=== PATIENT | female | born 1995 | race African-American/Black ===

== ENCOUNTER 2017-02-08 18:28 | Emergency (ER) | payer MEDICAID ==
[2017-02-08 18:39] VITALS: BP 114/68
--- NOTE | 2017-02-08 19:48 | ER Document Report ---
ED Skin Rash/Insect Bite/Abscs - General Chief Complaint: Abscess Stated Complaint: BUMP WITH PAIN ON GENITALIA Time Seen by Provider: 02/08/17 19:39 Notes: 21 yo female c/o painful bump to right labia x 3 days. had similar abscess in same area last year that was drained. pt denies dysuria, vaginal discharge, abdominal pain, fever TRAVEL OUTSIDE OF THE [place] IN LAST 30 DAYS: No - HPI Patient complains to provider of: Tender/swollen area Skin Character: Abscess Skin Temperature: Warm Quality of rash: Painful Exacerbated by: Denies Relieved by: Denies - Related Data Allergies/Adverse Reactions: No Known Allergies Allergy (Verified 02/08/17 18:38) Past Medical History - General Information source: Patient - Social History Smoking Status: Never Smoker Smoking Education Provided: Yes Frequency of alcohol use: None Drug Abuse: None Family History: Reviewed & Not Pertinent Pulmonary Medical History: Reports: Hx Asthma Renal/ Medical History: Denies: Hx Peritoneal Dialysis - Immunizations Immunizations up to date: Yes Hx Diphtheria, Pertussis, Tetanus Vaccination: Yes Review of Systems - Review of Systems Constitutional: No symptoms reported EENT: No symptoms reported Cardiovascular: No symptoms reported Respiratory: No symptoms reported Gastrointestinal: No symptoms reported Genitourinary: See HPI Female Genitourinary: No symptoms reported Musculoskeletal: No symptoms reported Skin: No symptoms reported Hematologic/Lymphatic: No symptoms reported Neurological/Psychological: No symptoms reported Physical Exam - Vital signs Vitals: Temp Pulse Resp BP Pulse Ox 97.5 F 101 H 16 114/68 98 02/08/17 18:38 02/08/17 18:38 02/08/17 18:38 02/08/17 18:38 02/08/17 18:38 Interpretation: Normal - General General appearance: Appears well, Alert - HEENT Head: Normocephalic, Atraumatic Eyes: Normal Pupils: PERRL - Respiratory Respiratory status: No respiratory distress Chest status: Nontender Breath sounds: Normal Chest palpation: Normal - Cardiovascular Rhythm: Regular Heart sounds: Normal auscultation Murmur: No - Abdominal Inspection: Normal Distension: No distension Bowel sounds: Normal Tenderness: Nontender Organomegaly: No organomegaly - Genitourinary External exam: Lesions - discrete pustule to right mid labia. Female anatomy: 1 - pustule, no induration - Back Back: Normal, Nontender - Extremities General upper extremity: Normal inspection, Nontender, Normal color, Normal ROM , Normal temperature General lower extremity: Normal inspection, Nontender, Normal color, Normal ROM , Normal temperature, Normal weight bearing. No: Opal's sign - Neurological Neuro grossly intact: Yes Cognition: Normal Orientation: AAOx4 Jaspreet Coma Scale Eye Opening: Spontaneous [place] Coma Scale Verbal: Oriented [place] Coma Scale Motor: Obeys Commands [place] Coma Scale Total: 15 Speech: Normal Motor strength normal: LUE, RUE, LLE, RLE Sensory: Normal - Psychological Associated symptoms: Normal affect, Normal mood - Skin Skin Temperature: Warm Skin Moisture: Dry Skin Color: Normal Course - Re-evaluation Re-evalutation: 02/08/17 19:54 early abscess. no fluctuance. I&D not indicated today. will treat with oral antibiotic, warm compresses. pt instructed to follow up with [employer] for further evaluation and treatment 02/08/17 19:55 pt agreeable with plan and stable for discharge - Vital Signs Vital signs: Temp Pulse Resp BP Pulse Ox 97.5 F 101 H 16 114/68 98 02/08/17 18:38 02/08/17 18:38 02/08/17 18:38 02/08/17 18:38 02/08/17 18:38 Discharge - Discharge Clinical Impression: Labial abscess Condition: Stable Disposition: HOME, SELF-CARE Instructions: Abscess ([facility]), Antibiotic Therapy ([facility]), Doxycycline ([facility]) Additional Instructions: take antibiotic as prescribed warm compresses to area follow up with [employer] as scheduled Prescriptions: Doxycycline Hyclate [Vibramycin] 100 mg PO BID #14 capsule
== END 2017-02-08 20:13 | disposition home or self-care (01) ==
LOC: ER 18:28
DX: N76.4 Abscess of vulva (principal); J45.909 Unspecified asthma, uncomplicated
CPT/HCPCS: 99282

== ENCOUNTER 2017-08-31 16:40 | Emergency (ER) | payer MEDICAID ==
[2017-08-31 16:48] VITALS: BP 115/65
--- NOTE | 2017-08-31 18:46 | ER Document Report ---
ED Skin Rash/Insect Bite/Abscs - General Chief Complaint: Abscess Stated Complaint: POSSIBLE ABSCESS Time Seen by Provider: 08/31/17 18:03 Mode of Arrival: Ambulatory Information source: Patient Notes: [id number] female presenting today for complaint of a "abscess to the vagina 3 days. She states she has a history of the same 2 years ago with an I& D. TRAVEL OUTSIDE OF THE [place] IN LAST 30 DAYS: No - HPI Patient complains to provider of: Skin rash/lesion, Other - Painful area to the right labia Onset: Other - 3 days Onset/Duration: Gradual Quality of pain: Burning, Sharp Severity: Moderate Pain Level: 4 Skin Character: Rash - To both labia and thighs, Other - States she has a sore area to her right labia Quality of rash: Painful Identify cause: No Exacerbated by: Movement, Walking Relieved by: Denies Similar symptoms previously: Yes Recently seen / treated by doctor: No - Related Data Allergies/Adverse Reactions: No Known Allergies Allergy (Verified 02/08/17 18:38) Past Medical History - General Information source: Patient - Social History Smoking Status: Never Smoker Cigarette use (# per day): No Chew tobacco use (# tins/day): No Smoking Education Provided: No Frequency of alcohol use: None Drug Abuse: None Lives with: Family Family History: Reviewed & Not Pertinent Patient has suicidal ideation: No Patient has homicidal ideation: No - Past Medical History Cardiac Medical History: Reports: None Pulmonary Medical History: Reports: Hx Asthma EENT Medical History: Reports: None Neurological Medical History: Reports: None Endocrine Medical History: Reports: None Renal/ Medical History: Reports: None Malignancy Medical History: Reports: None GI Medical History: Reports: None Musculoskeltal Medical History: Reports None Skin Medical History: Reports Hx Cellulitis Psychiatric Medical History: Reports: None Traumatic Medical History: Reports: None Infectious Medical History: Reports: None Surgical Hx: Negative Past Surgical History: Reports: None - Immunizations Immunizations up to date: Yes Hx Diphtheria, Pertussis, Tetanus Vaccination: Yes Review of Systems - Review of Systems Constitutional: No symptoms reported EENT: No symptoms reported Cardiovascular: No symptoms reported Respiratory: No symptoms reported Gastrointestinal: No symptoms reported Genitourinary: No symptoms reported Female Genitourinary: Other - Painful swollen right labia Musculoskeletal: No symptoms reported Skin: Other - Painful sore to right labia nonpainful rash to bilateral labia and thigh Hematologic/Lymphatic: No symptoms reported Neurological/Psychological: No symptoms reported -: Yes All other systems reviewed and negative Physical Exam - Vital signs Vitals: Temp Pulse Resp BP Pulse Ox 98.5 F 100 16 115/65 98 08/31/17 16:46 08/31/17 16:46 08/31/17 16:46 08/31/17 16:46 08/31/17 16:46 Interpretation: Normal - General General appearance: Appears well, Alert - HEENT Head: Normocephalic, Atraumatic Eyes: Normal Pupils: PERRL - Respiratory Respiratory status: No respiratory distress Chest status: Nontender Breath sounds: Normal Chest palpation: Normal - Cardiovascular Rhythm: Regular Heart sounds: Normal auscultation Murmur: No - Abdominal Inspection: Normal Distension: No distension Bowel sounds: Normal Tenderness: Nontender Organomegaly: No organomegaly - Genitourinary External exam: Normal, Lesions - Open sore to the right labia not an abscess. Patient states she scratched 1 of the bumps that she has on the lower area. She states she also shaved and she is not sure which one caused the sore. - Back Back: Normal, Nontender - Extremities General upper extremity: Normal inspection, Nontender, Normal color, Normal ROM , Normal temperature General lower extremity: Normal inspection, Nontender, Normal color, Normal ROM , Normal temperature, Normal weight bearing. No: Opal's sign - Neurological Neuro grossly intact: Yes Cognition: Normal Orientation: AAOx4 [place] Coma Scale Eye Opening: Spontaneous Jasp[place] Coma Scale Verbal: Oriented Jaspreet Coma Scale Motor: Obeys Commands Jaspreet Coma Scale Total: 15 Speech: Normal Motor strength normal: LUE, RUE, LLE, RLE Sensory: Normal - Psychological Associated symptoms: Normal affect, Normal mood - Skin Skin Temperature: Warm Skin Moisture: Dry Skin Color: Normal Location of irregularity: Other - Painful open sore to right labia, rash/bumps to the left and right labia and thigh each one on a hair follicle nonpainful Course - Re-evaluation Re-evalutation: 09/01/17 02:14 Patient instructed to clean labia well with soap and water and apply bacitracin. Sample was sent for herpes simplex of the bumps to the hair follicles on the right and left labia and thigh. Patient scheduled to follow- up with primary doctor and [employer]. Patient instructed to return to ED if any of the bumps/rash become painful or infected. Patient verbalized understanding of instructions. Asked if patient had any other questions or concerns. As patient stated no she did not have any other questions or concerns. - Vital Signs Vital signs: Temp Pulse Resp BP Pulse Ox 98.5 F 100 16 115/65 98 08/31/17 16:46 08/31/17 16:46 08/31/17 16:46 08/31/17 16:46 08/31/17 16:46 Discharge - Discharge Clinical Impression: open sore to right labia, Rash to the perineal area Condition: Stable Disposition: HOME, SELF-CARE Additional Instructions: You were seen today for an open sore to you right vagina. You state it has been there 2 or 3 days. There is no abscess in this area. You have some rash that she states is not painful and each bump is on a hair follicle. This does not appear to be herpes but we will send a culture for the herpes. I have given you some bacitracin to apply to the open wound to your right labia. Please be careful shaving and if you scratch these bumps and make an open sore. Please clean and well with soap and water and apply bacitracin to prevent infection. SOAP CLEANSING: Gently wash the wound daily using a mild soap (like Ivory, Phisoderm, Neutrogena). Use warm water, rubbing gently until all debris, ooze, and crusting have been washed from the wound. Allow to dry briefly (about 10 minutes) after cleaning. Repeat this cleansing at least three times a day for the first two days and then once or twice a day. ANTIBIOTIC OINTMENT PROTECTION: Your wounds are such that dressing them is not practical or optional. After cleansing, you should apply a thin coating of antibiotic ointment ( Bacitracin, not Neosporin) to the wounds at least three times daily. This lessens infection risk, and may decrease the amount of scarring. Use a q-tip or dull butter knife, not your finger, to apply this ointment. Any debris or ooze which builds up in the ointment should be gently rubbed off with a sterile gauze pad. Harder crusting may need to be gently scrubbed off with a clean wash cloth with soap and warm water, perhaps applying a warm, wet wash cloth to the wound for ten minutes first. Development of redness, severe itching, or blistering may mean allergy to the ointment. See the doctor. Acetaminophen Acetaminophen may be taken for pain relief or fever control. It's much safer than aspirin, offering a wider range of "safe" dosages. It is safe during . Some brand names are Tylenol, Panadol, Datril, Anacin 3, Tempra, and Liquiprin. Acetaminophen can be repeated every four hours. The following are maximum recommended dosages: WEIGHT Dose Drops Elixir Chewable( 80mg) (LBS.) drprs=droppers tsp=teaspoon 6 40 mg .4 ml (1/2) 6-11 80 mg .8 ml (full) 1/2 tsp 1 tab 12-16 120 mg 1 1/2 drprs 3/4 tsp 1 1/2 tabs 17-23 160 mg 2 drprs 1 tsp 2 tabs 24-30 240 mg 3 drprs 1 1/2 tsp 3 tabs 30-35 320 mg 2 tsp 4 tabs 36-41 360 mg 2 1/4 tsp 4 1 /2 tabs 42-47 400 mg 2 1/2 tsp 5 tabs 48-53 480 mg 3 tsp 6 tabs 54-59 520 mg 3 1/4 tsp 6 1 /2 tabs 60-64 560 mg 3 1/2 tsp 7 tabs 65-70 600 mg 3 3/4 tsp 7 1 /2 tabs 71-76 640 mg 4 tsp 8 tabs 77-82 720 mg 4 1/2 tsp 9 tabs 83-88 800 mg 5 tsp 10 tabs >89 pounds or adults 650 mg to 900 mg Acetaminophen can be repeated every four hours. Maximum daily dose not to exceed 4000 mg. These maximum recommended dosages are slightly higher than the dosages written on the product container, but these dosages are very safe and well below the toxic dosage for acetaminophen. Ibuprofen Ibuprofen is an excellent, safe drug for pain control. In addition, it has potent antiinflammatory effects which are beneficial, especially in the treatment of injuries, arthritis, or tendonitis. It's best to take ibuprofen with food. Persons with ulcer disease or allergy to aspirin should notify their physician of this before taking ibuprofen. Take the medication exactly as prescribed. Don't take additional doses unless instructed to do so by your doctor. If you develop wheezing, shortness of breath, hives, faintness, stomach pain, vomiting, or dark black stools, return for re-evaluation at once. Call [phone] in about a week for the results of the herpes culture FOLLOW-UP CARE: If you have been referred to a physician for follow-up care, call the physician s office for an appointment as you were instructed or within the next two days. If you experience worsening or a significant change in your symptoms, notify the physician immediately or return to the Emergency Department at any time for re-evaluation. Forms: Return to Work Referrals: [facility] [Provider Group] - Follow up as needed
== END 2017-08-31 19:15 | disposition home or self-care (01) ==
LOC: ER 16:40
DX: L98.9 Disorder of the skin and subcutaneous tissue, unspecified (principal); R21 Rash and other nonspecific skin eruption; J45.909 Unspecified asthma, uncomplicated
CPT/HCPCS: 87250; 99282

== ENCOUNTER 2017-09-26 13:08 | Emergency (ER) | payer MEDICAID ==
[2017-09-26 13:15] VITALS: BP 111/70
--- NOTE | 2017-09-26 13:50 | ER Document Report ---
ED General - General Chief Complaint: Rectal Bleeding Stated Complaint: RECTAL PAIN Time Seen by Provider: 09/26/17 13:34 Mode of Arrival: Ambulatory Information source: Patient Notes: 21-year-old female presents with complaints of intermittent rectal pain with bowel movements. Patient denies any fevers or chills denies any abdominal pain notes that she has bright red blood per rectum Patient notes she was treated for this with a cream and some pills a few months prior symptoms improved and then returned admits to hard bowel movements TRAVEL OUTSIDE OF THE [place] IN LAST 30 DAYS: No COUNTRY TRAVELED TO/FROM: [facility] Onset: Other Onset/Duration: Intermittent Quality of pain: Burning Severity: Mild Pain Level: 1 Associated symptoms: Other Exacerbated by: Other - Bowel movements Relieved by: Other - Medications provided to her from urgent care Similar symptoms previously: Yes Recently seen / treated by doctor: Yes - Related Data Allergies/Adverse Reactions: No Known Allergies Allergy (Verified 02/08/17 18:38) Past Medical History - Social History Smoking Status: Never Smoker Cigarette use (# per day): No Chew tobacco use (# tins/day): No Smoking Education Provided: No Family History: Reviewed & Not Pertinent Pulmonary Medical History: Reports: Hx Asthma Renal/ Medical History: Denies: Hx Peritoneal Dialysis Skin Medical History: Reports Hx Cellulitis - Immunizations Immunizations up to date: Yes Hx Diphtheria, Pertussis, Tetanus Vaccination: Yes Review of Systems - Review of Systems Notes: REVIEW OF SYSTEMS: CONSTITUTIONAL : Denies fever, chills, or sweats. Denies recent illness. EENT: Denies eye, ear, throat, or mouth pain or symptoms. Denies nasal or sinus congestion or discharge. Denies throat, tongue, or mouth swelling or difficulty swallowing. CARDIOVASCULAR: Denies chest pain. Denies palpitations or racing or irregular heart beat. Denies ankle edema. RESPIRATORY: Denies cough, cold, or chest congestion. Denies shortness of breath, difficulty breathing, or wheezing. GASTROINTESTINAL: Admits to rectal bleeding GENITOURINARY: Denies difficulty urinating, painful urination, burning, frequency, blood in urine, or discharge. FEMALE GENITOURINARY: Denies vaginal bleeding, heavy or abnormal periods, irregular periods. Denies vaginal discharge or odor. MUSCULOSKELETAL: Denies back or neck pain or stiffness. Denies joint pain or swelling. SKIN: Denies rash, lesions or sores. HEMATOLOGIC : Denies easy bruising or bleeding. LYMPHATIC: Denies swollen, enlarged glands. NEUROLOGICAL: Denies confusion or altered mental status. Denies passing out or loss of consciousness. Denies dizziness or lightheadedness. Denies headache. Denies weakness or paralysis or loss of use of either side. Denies problems with gait or speech. Denies sensory loss, numbness, or tingling. Denies seizures. PSYCHIATRIC: Denies anxiety or stress. Denies depression, suicidal ideation, or homicidal ideation. ALL OTHER SYSTEMS REVIEWED AND NEGATIVE. PHYSICAL EXAMINATION: GENERAL: Well-appearing, well-nourished and in no acute distress. HEAD: Atraumatic, normocephalic. EYES: Pupils equal round and reactive to light, extraocular movements intact, conjunctiva are normal. ENT: Nares patent, oropharynx clear without exudates. Moist mucous membranes. NECK: Normal range of motion, supple without lymphadenopathy LUNGS: Breath sounds clear to auscultation bilaterally and equal. No wheezes rales or rhonchi. HEART: Regular rate and rhythm without murmurs ABDOMEN: Soft, nontender, nondistended abdomen. No guarding, no rebound. No masses appreciated. Female : Rectal examination performed with nurse Cat in the room, anal fissure noted at the 6:00 region no active bleeding no hemorrhoids Musculoskeletal: Normal range of motion, no pitting or edema. No cyanosis. NEUROLOGICAL: Cranial nerves grossly intact. Normal speech, normal gait. Normal sensory, motor exams PSYCH: Normal mood, normal affect. SKIN: Warm, Dry, normal turgor, no rashes or lesions noted. Dictation was performed using [employer] voice recognition software Physical Exam - Vital signs Vitals: Temp Pulse Resp BP Pulse Ox 97.9 F 90 18 111/70 98 09/26/17 13:12 09/26/17 13:12 09/26/17 13:12 09/26/17 13:12 09/26/17 13:12 Course - Re-evaluation Re-evalutation: 09/26/17 13:48 Patient has obvious anal fissure, she will be treated with stool softeners and lidocaine jelly she otherwise looks well will be given GI follow-up as symptoms have now resolved after a few months After performing a Medical Screening Examination, I estimate there is LOW risk for ACUTE APPENDICITIS, BOWEL OBSTRUCTION, ACUTE CHOLECYSTITIS, PERFORATED DIVERTICULITIS, INCARCERATED HERNIA, PANCREATITIS, PELVIC INFLAMMATORY DISEASE, PERFORATED ULCER, ECTOPIC , or TUBO-OVARIAN ABSCESS, thus I consider the discharge disposition reasonable. Also, there is no evidence or peritonitis , sepsis, or toxicity. I have reevaluated this patient multiple times and no significant life threatening changes are noted. The patient and I have discussed the diagnosis and risks, and we agree with discharging home with close follow-up with the understanding that symptoms and presentations can change. We also discussed returning to the Emergency Department immediately if new or worsening symptoms occur. We have discussed the symptoms which are most concerning (e.g., bloody stool, fever, changing or worsening pain, vomiting) that necessitate immediate return. - Vital Signs Vital signs: Temp Pulse Resp BP Pulse Ox 97.9 F 90 18 111/70 98 09/26/17 13:12 09/26/17 13:12 09/26/17 13:12 09/26/17 13:12 09/26/17 13:12 Discharge - Discharge Clinical Impression: Anal fissure, Rectal bleed Condition: Stable Disposition: HOME, SELF-CARE Instructions: Anal Fissure ([facility]) Prescriptions: Lidocaine HCl 5 gm TP PRN PRN #1 bottle PRN Reason: Polyethylene Glycol 3350 [Miralax Powder 17 gm/Packet] 1 packet PO DAILY #7 pkg Referrals: MELLY BARNES MD [ACTIVE STAFF] - Follow up in 3-5 days
== END 2017-09-26 13:52 | disposition home or self-care (01) ==
LOC: ER 13:08
DX: K60.2 Anal fissure, unspecified (principal); K62.5 Hemorrhage of anus and rectum; J45.909 Unspecified asthma, uncomplicated
CPT/HCPCS: 99283

== ENCOUNTER 2018-06-17 19:04 | Emergency (ER) | payer OTHER, MEDICAID ==
[2018-06-17 19:27] VITALS: BP 113/64
[2018-06-17] MEDS ORDERED: ACETAMINOPHEN 325 MG TABLET PO ONE (20:26)
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
== END 2018-06-17 21:03 | disposition home or self-care (01) ==
LOC: ER 19:04
DX: M54.5 Low back pain (principal); V49.40XA Driver injured in collision with unspecified motor vehicles in traffic accident, initial encounter
CPT/HCPCS: 99283

== ENCOUNTER 2018-07-02 11:42 | Emergency (ER) | payer MEDICAID, OTHER | END 2018-07-02 11:45 | disposition left against medical advice (07) | LOC: ER 11:42 | DX: Z53.21 Procedure and treatment not carried out due to patient leaving prior to being seen by health care provider (principal) ==

== ENCOUNTER 2018-07-29 09:57 | Emergency (ER) | payer MEDICAID ==
[2018-07-29 10:08] VITALS: BP 100/56
--- NOTE | 2018-07-29 10:46 | ER Document Report ---
ED Medical Screen (RME) - General Chief Complaint: Rectal Bleeding Stated Complaint: RECTAL ISSUE Time Seen by Provider: 07/29/18 10:45 Mode of Arrival: Ambulatory TRAVEL OUTSIDE OF THE [place] IN LAST 30 DAYS: No COUNTRY TRAVELED TO/FROM: [facility] Patient complains to provider of: rectal tear Onset: Other - pt states she was seen here last year for rectal tear and it has recurred. Is having blood in stool. - Related Data Allergies/Adverse Reactions: No Known Allergies Allergy (Verified 07/29/18 09:59) Past Medical History Pulmonary Medical History: Reports: Hx Asthma Renal/ Medical History: Denies: Hx Peritoneal Dialysis Skin Medical History: Reports Hx Cellulitis - Immunizations Immunizations up to date: Yes Hx Diphtheria, Pertussis, Tetanus Vaccination: Yes Physical Exam - Vital signs Vitals: Temp Pulse Resp BP Pulse Ox 98.8 F 107 H 16 100/56 L 97 07/29/18 10:07 07/29/18 10:07 07/29/18 10:07 07/29/18 10:07 07/29/18 10:07 Course - Vital Signs Vital signs: Temp Pulse Resp BP Pulse Ox 98.8 F 107 H 16 100/56 L 97 07/29/18 10:07 07/29/18 10:07 07/29/18 10:07 07/29/18 10:07 07/29/18 10:07 Doctor's Discharge - Discharge Referrals: HILLARY VARNER DO [Primary Care Provider] - Follow up as needed
[2018-07-29] MEDS ORDERED: LIDOCAINE 2% JELLY 30 ML TUBE TOP ONE (11:10)
--- NOTE | 2018-07-29 11:15 | ER Document Report ---
HPI - HPI Pain Level: 5 Notes: Patient is a 22-year-old female who presents the emergency department complaining of a "tear to her butt hole." Patient states that she had similar symptoms this past year and was given a cream and some medicine for an anal fissure. Patient states that this is the exact same feeling. Patient states that with each bowel movement she feels a tearing sensation and that she is passing groundglass. She has otherwise been eating and drinking without difficulty. She is urinating normally. She has not had any vaginal discharge, odor, or bleeding. She has not been seen by anybody for this otherwise. Denies drug allergies. Denies any headache, fever, neck pain, URI, sore throat, chest pain, palpitations, syncope, cough, shortness of breath, wheeze, dyspnea, abdominal pain, nausea/vomiting/diarrhea, urinary retention, dysuria, hematuria, back pain, or rash. - ROS Systems Reviewed and Negative: Yes All other systems reviewed and negative - REPRODUCTIVE Reproductive: DENIES: : - DERM Skin Color: Normal <ZACHARY HOLDER - Last Filed: 07/29/18 11:11> <ASCENCION FLEMING - Last Filed: 07/30/18 08:18> - HPI Time Seen by Provider: 07/29/18 10:45 Past Medical History - Social History Smoking Status: Never Smoker Frequency of alcohol use: None Drug Abuse: None Family History: Reviewed & Not Pertinent Patient has suicidal ideation: No Patient has homicidal ideation: No Pulmonary Medical History: Reports: Hx Asthma Renal/ Medical History: Denies: Hx Peritoneal Dialysis Skin Medical History: Reports Hx Cellulitis - Immunizations Immunizations up to date: Yes Hx Diphtheria, Pertussis, Tetanus Vaccination: Yes <ZACHARY HOLDER - Last Filed: 07/29/18 11:11> Vertical Provider Document - CONSTITUTIONAL Agree With Documented VS: Yes Notes: PHYSICAL EXAMINATION: accompanied by Ana female RN. GENERAL: Well-appearing, well-nourished and in no acute distress. LUNGS: Breath sounds clear to auscultation bilaterally and equal. No wheezes rales or rhonchi. HEART: Regular rate and rhythm without murmurs, rubs, gallops. ABDOMEN: Soft, nontender, nondistended abdomen. No guarding, no rebound. No masses appreciated. Normal bowel sounds present. No CVA tenderness bilaterally. Rectal: small anal fissure noted. No hemorrhoids or any active bleeding. No melena. Musculoskeletal: FROM to passive/active. Strength 5+/5. Extremities: No cyanosis, clubbing, or edema b/l. Peripheral pulses 2+. Capillary refill less than 3 seconds. NEUROLOGICAL: Normal speech, normal gait. PSYCH: Normal mood, normal affect. SKIN: see above. - INFECTION CONTROL TRAVEL OUTSIDE OF THE [place] IN LAST 30 DAYS: No COUNTRY TRAVELED TO/FROM: [place] <ZACHARY HOLDER - Last Filed: 07/29/18 11:11> Course - Re-evaluation Re-evalutation: 07/29/18 11:13 Patient is an afebrile, well-hydrated, 22-year-old female who presents to the emergency department with an anal fissure. Vitals are currently acceptable without any significant tachycardia, tachypnea, or hypoxia. PE is otherwise unremarkable aside from the noted fissure which reproduces patient's symptoms. No labs or imaging warranted at this time. Patient is nontoxic-appearing and is tolerating p.o. without difficulty. Low suspicion/risk for acute appendicitis, bowel obstruction, acute cholecystitis, acute cholangitis, perforated diverticulitis, incarcerated hernia, pancreatitis, perforated ulcer, peritonitis, sepsis, pelvic inflammatory disease, ectopic , tubo- ovarian abscess, ovarian torsion, or other systemic emergent condition at this time. Patient is aware that her condition can change from initial presentation and she needs to monitor symptoms closely and seek medical attention if any ac whit changes. Patient was dispensed Xylocaine Jelly. I will send her home with prescription for MiraLAX. Conservative measures otherwise for symptoms. Recheck with your PCM in 3-5 days. Consider consult with a chemical process operator. Return to the ED with any worsening/concerning symptoms otherwise as reviewed in discharge. Patient is in agreement. - Vital Signs Vital signs: Temp Pulse Resp BP Pulse Ox 98.8 F 107 H 16 100/56 L 97 07/29/18 10:07 07/29/18 10:07 07/29/18 10:07 07/29/18 10:07 07/29/18 10:07 <ZACHARY HOLDER - Last Filed: 07/29/18 11:11> - Vital Signs Vital signs: Temp Pulse Resp BP Pulse Ox 98.8 F 107 H 16 100/56 L 97 07/29/18 10:07 07/29/18 10:07 07/29/18 10:07 07/29/18 10:07 07/29/18 10:07 <ASCENCION FLEMING - Last Filed: 07/30/18 08:18> Discharge <ZACHARY HOLDER - Last Filed: 07/29/18 11:11> <ASCENCION FLEMING - Last Filed: 07/30/18 08:18> - Discharge Clinical Impression: Anal fissure Condition: Stable Disposition: HOME, SELF-CARE Instructions: Anal Fissure ([facility]) Additional Instructions: Maintain adequate fluid and food intake high fiber/water intake Meds as directed tylenol/motrin if needed Monitor for any worsening symptoms Make sure you are staying hydrated enough to urinate and have normal BM's Recheck with your PCM in 3-5 days Consider consult with Gastroenterology for ongoing/worsening symptoms Return to the ED with any worsening symptoms and/or development of fever, headache, chest pain, palpitations, syncope, shortness of breath, trouble breathing, abdominal pain, n/v/d, blood in stool/urine, weakness, or other worsening symptoms that are concerning to you. Prescriptions: RX: Naproxen 500 mg PO BID #10 tablet Polyethylene Glycol 3350 [Miralax] 1 cap PO DAILY #527 powder Forms: Return to Work Referrals: HILLARY VARNER DO [Primary Care Provider] - Follow up as needed MELLY BARNES MD [ACTIVE STAFF] - Follow up as needed Cosign for MLP Consult - Cosign -: I was personally available for consultation in the Emergency Department and serving as supervising physician for the MLP. Cosign for MLP: . <ASCENCION FLEMING - Last Filed: 07/30/18 08:18>
[2018-07-29] MEDS ORDERED: LIDOCAINE 2% JELLY 5 ML TUBE MM ONE (12:00)
== END 2018-07-29 11:49 | disposition home or self-care (01) ==
LOC: ER 09:57
DX: K60.2 Anal fissure, unspecified (principal); J45.909 Unspecified asthma, uncomplicated
CPT/HCPCS: 99282; J3490